=== PATIENT | male | born 2000 | race Two or more races ===

== ENCOUNTER 2023-08-26 12:10 | Emergency (ER) | payer MEDICAID ==
[~2023-08-26] VITALS: Ht 185.4 cm; Wt 93.7 kg
[2023-08-26 13:52] VITALS: BP 124/59; PULSE 77; RESP 18; O2SAT 98
[2023-08-26] MEDS: ACETAMINOPHEN 500 MG TAB PO ONE (14:23)
[2023-08-26] MEDS ORDERED: METH-1182 PO (15:06)
[2023-08-26] MEDS ORDERED: IBUP-1456 PO (15:06)
[2023-08-26 15:09] VITALS: TEMP 98.1
== END 2023-08-26 15:10 | disposition home or self-care (01) ==
LOC: ER 12:10
DX: S16.1XXA Strain of muscle, fascia and tendon at neck level, initial encounter (principal); S29.012A Strain of muscle and tendon of back wall of thorax, initial encounter; V43.52XA Car driver injured in collision with other type car in traffic accident, initial encounter; Y93.89 Activity, other specified; Y92.488 Other paved roadways as the place of occurrence of the external cause; Y99.8 Other external cause status
CPT/HCPCS: 72040; 72070